=== PATIENT | female | born 1995 | race Caucasian/White ===

== ENCOUNTER 2017-10-01 10:22 | Emergency (ER) | payer MEDICAID ==
[~2017-10-01] VITALS: Ht 167.6 cm; Wt 192.4 kg
[~2017-10-01 10:22] MED LIST: CLIN-80 PO; NITR100C6 PO; PNV1TABL7 PO
[2017-10-01 10:33] VITALS: BP 122/66
[2017-10-01] MEDS ORDERED: ONDA4TAB9 SL (12:26)
== END 2017-10-01 12:38 | disposition home or self-care (01) ==
LOC: ER 10:23
DX: O21.9 Vomiting of pregnancy, unspecified (principal); O26.893 Other specified pregnancy related conditions, third trimester; R19.7 Diarrhea, unspecified; F12.10 Cannabis abuse, uncomplicated; Z3A.29 29 weeks gestation of pregnancy; Z56.0 Unemployment, unspecified; Z79.899 Other long term (current) drug therapy
CPT/HCPCS: 99283

== ENCOUNTER 2018-09-10 11:57 | Emergency (ER) | payer MEDICAID ==
[~2018-09-10] VITALS: Ht 170.2 cm; Wt 90.0 kg
[~2018-09-10 11:57] MED LIST changes: -CLIN-80 PO; +CLIN300C85 PO
[2018-09-10 12:04] VITALS: BP 140/60
== END 2018-09-10 13:53 | disposition left against medical advice (07) ==
LOC: ER 11:58
DX: K08.89 Other specified disorders of teeth and supporting structures (principal); Z53.21 Procedure and treatment not carried out due to patient leaving prior to being seen by health care provider

== ENCOUNTER 2019-02-06 12:07 | Emergency (ER) | payer MEDICAID ==
[~2019-02-06] VITALS: Ht 167.6 cm; Wt 80.5 kg
[~2019-02-06 12:07] MED LIST changes: +CLIN-96 PO; -CLIN300C85 PO
[2019-02-06 12:16] VITALS: BP 122/64
== END 2019-02-06 13:53 | disposition home or self-care (01) ==
LOC: ER 12:08
DX: O26.892 Other specified pregnancy related conditions, second trimester (principal); R10.2 Pelvic and perineal pain; O99.322 Drug use complicating pregnancy, second trimester; F12.90 Cannabis use, unspecified, uncomplicated; Z56.0 Unemployment, unspecified; Z3A.23 23 weeks gestation of pregnancy; Z79.899 Other long term (current) drug therapy
CPT/HCPCS: 99284

== ENCOUNTER 2020-07-14 13:43 | Emergency (ER) | payer MEDICAID ==
[~2020-07-14] VITALS: Ht 167.6 cm; Wt 98.2 kg
[~2020-07-14 13:43] MED LIST changes: -CLIN-96 PO; +CLIN-97 PO
[2020-07-14 15:33] VITALS: BP 114/57
== END 2020-07-14 17:48 | disposition left against medical advice (07) ==
LOC: ER 13:44
DX: O20.0 Threatened abortion (principal); F17.200 Nicotine dependence, unspecified, uncomplicated; F12.10 Cannabis abuse, uncomplicated; Z3A.18 18 weeks gestation of pregnancy; Z79.899 Other long term (current) drug therapy; Z56.0 Unemployment, unspecified
CPT/HCPCS: 36415; 84702; 99283

== ENCOUNTER 2021-10-18 12:19 | Emergency (ER) | payer MEDICAID ==
[~2021-10-18] VITALS: Ht 167.6 cm; Wt 110.0 kg
[2021-10-18 12:24] VITALS: BP 138/89
== END 2021-10-18 14:08 | disposition home or self-care (01) ==
LOC: ER 12:19
DX: Z02.89 Encounter for other administrative examinations (principal); R11.0 Nausea; R22.9 Localized swelling, mass and lump, unspecified; F12.90 Cannabis use, unspecified, uncomplicated; Z79.2 Long term (current) use of antibiotics; Z79.899 Other long term (current) drug therapy
CPT/HCPCS: 99281

== ENCOUNTER 2024-08-22 02:35 | Emergency (ER) | payer MEDICAID ==
[~2024-08-22] VITALS: Ht 167.6 cm; Wt 96.3 kg
[2024-08-22 02:37] VITALS: TEMP 98
[2024-08-22] MEDS: dexamethasone sod phosphate 10mg/ml inj PO STA (04:20)
[2024-08-22] MEDS: diphenhydrAMINE 25 MG/10 ML UD oral solution PO ONE (04:20)
[2024-08-22] MEDS: normal saline 1000ML IV soln IVB ONE (04:20)
[2024-08-22] MEDS ORDERED: ONDA-243 PO (04:30)
[2024-08-22 05:30] VITALS: BP 127/65; PULSE 67; RESP 16; O2SAT 99
== END 2024-08-22 05:33 | disposition home or self-care (01) ==
LOC: ER 02:35
DX: O26.891 Other specified pregnancy related conditions, first trimester (principal); J11.1 Influenza due to unidentified influenza virus with other respiratory manifestations; F12.90 Cannabis use, unspecified, uncomplicated; Z79.899 Other long term (current) drug therapy; Z56.0 Unemployment, unspecified; Z20.822 Contact with and (suspected) exposure to COVID-19; Z3A.12 12 weeks gestation of pregnancy
CPT/HCPCS: 36415; 87502; 87503; 87811; 96360; 99283; J1100; J7030; Q0163